=== PATIENT | male | born 1990 | race Caucasian/White ===

== ENCOUNTER 2017-10-07 22:30 | Emergency (ER) | payer BC ==
[2017-10-07] MEDS ORDERED: traMADol 50 MG Tab PO ONE (23:08)
[2017-10-07] MEDS ORDERED: Amoxicillin/Clavulanate K 875-125 MG Tab PO ONE (23:08)
--- NOTE | 2017-10-07 23:08 | EDM.PDOC ---
ED HPI GENERAL MEDICAL PROBLEM - General Chief Complaint: Eye Problems Stated Complaint: EYE PROBLEM Time Seen by Provider: 10/07/17 22:35 Source of Information: Reports: Patient - History of Present Illness INITIAL COMMENTS - FREE TEXT/NARRATIVE: 27 y.o.w.m came to the ed with his friend after he was grinding wood and suddenly felt pain in his right eye. Pt had severe sensitivity to light. Pt had severe right eye pain with movement. Pt denied any other acute medical issues. BP 152/78 puse 70 RR 20 Pulse ox 98% on RA. Onset: Today Onset Date: 10/07/17 Onset Time: 09:00 Duration: Hour(s):, Intermittent Location: Reports: Face Quality: Reports: Ache, Burning, Dull, Stabbing Severity: Moderate Improves with: Reports: Rest Worsens with: Reports: Movement Context: Reports: Other (sawmill dust in right eye) Associated Symptoms: Reports: Other Right eye Pain Score (Numeric/FACES): 2 - Related Data Allergies Allergy/AdvReac Type Severity Reaction Status Date / Time No Known Allergies Allergy Verified 10/07/17 22:59 Home Meds: Home Meds Acetaminophen [Tylenol Extra Strength] 1,000 mg PO Q6H PRN 10/07/17 [History] Amoxicillin/Clavulanate K [Augmentin 875 MG] 1 tab PO BID #20 tablet 10/07/17 [ Rx] ED ROS GENERAL - Review of Systems Review Of Systems: See Below Constitutional: Reports: No Symptoms HEENT: Reports: Eye Pain Respiratory: Reports: No Symptoms Cardiovascular: Reports: No Symptoms Endocrine: Reports: No Symptoms GI/Abdominal: Reports: No Symptoms : Reports: No Symptoms Musculoskeletal: Reports: No Symptoms Skin: Reports: Erythema (periocular) Neurological: Reports: No Symptoms Psychiatric: Reports: No Symptoms Hematologic/Lymphatic: Reports: No Symptoms Immunologic: Reports: No Symptoms ED EXAM GENERAL W FULL EYE - Physical Exam Exam: See Below Exam Limited By: No Limitations General Appearance: Alert, WD/WN, Mild Distress Eye Exam: Right Eye: Conjunctival Injection, Corneal Abrasion (saw dust right eye), Foreign Body, Normal Fundi, Bilateral Eye: EOMI Eyelids: Right: Lid Everted for Exam Conjunctiva & Sclera: Right: Foreign Body Extraocular Movements: Bilateral: Intact Pupils: Normal Accommodation Pupillary Reaction: Bilateral: Brisk Anterior Chamber: Bilateral: Normal Appearance Ears: Normal External Exam Nose: Normal Inspection Throat/Mouth: Normal Inspection Head: Atraumatic Neck: Normal Inspection Respiratory/Chest: No Respiratory Distress Cardiovascular: Normal Peripheral Pulses GI/Abdominal: Normal Bowel Sounds (Male) Exam: Deferred (Female) Exam: Deferred Rectal (Males) Exam: Deferred Rectal (Female) Exam: Deferred Back Exam: Normal Inspection Extremities: Normal Inspection Neurological: Alert, Oriented, CN II-XII Intact Psychiatric: Normal Affect, Normal Mood Skin Exam: Warm, Dry, Intact Lymphatic: No Adenopathy ED EYE w/ Add Procedure - Eye Procedure Alcaine Drops Administered: Yes Eye Irrigated w/ Saline (ccs): 10 Antibiotic Oinment/Drps Admin: Right Eye Course - Vital Signs Text/Narrative:: 27 y.o.w.m came to the ed with his friend after he was grinding wood and suddenly felt pain in his right eye. Pt had severe sensitivity to light. Pt had severe right eye pain with movement. Pt denied any other acute medical issues. BP 152/78 puse 70 RR 20 Pulse ox 98% on RA. TN: R eye pain with photophobia Procedure: right eye was anesthetized with Rell, Fouroscein was applied, sand like material was seen at the right cornea lateral aspect with corneal abrasions. Right eye was irrigated with 125 cc of NS using a Ryan lense. After the eye was irrigated, Gentamicin ointment was applied. No complication. Visual acuity: Please see nursing note Impression: FB right eye, Periorbital cellulitis, corneal abrasion Tx: Eye irrigation, Abx (gentamicin ointment to take home) ultram Reexam: Improved after irrigation with NS and Gentamicin eye ointment application Plan: D/C with instructions Addendum: I have called the pt on 10/08/2017 at 3 pm. He was doing fine and did not see an reconciliation specialist. Last Recorded V/S: Last Vital Signs Temp 36.4 C 10/07/17 23:20 Pulse 75 10/07/17 23:20 Resp 18 10/07/17 23:20 BP 143/74 H 10/07/17 23:20 Pulse Ox 99 10/07/17 23:20 - Orders/Labs/Meds Meds: Medications Discontinued Medications Generic Name Dose Route Start Last Admin Trade Name Freq PRN Reason Stop Dose Admin Amoxicillin/Clavulanate Potassium 1 tab 10/07/17 23:08 10/07/17 23:15 Augmentin 875 Mg/125 Mg PO 10/07/17 23:09 1 tab ONETIME ONE Administration Departure - Departure Time of Disposition: 23:04 Disposition: Home, Self-Care 01 Condition: Good Clinical Impression: Periorbital cellulitis of right eye Foreign body of right eye Qualifiers: Encounter type: initial encounter Qualified Code(s): T15.91XA - Foreign body on external eye, part unspecified, right eye, initial encounter - Discharge Information Prescriptions: Amoxicillin/Clavulanate K [Augmentin 875 MG] 1 tab PO BID #20 tablet Referrals: PCP,None [Primary Care Provider] - Forms: ED Department Discharge Additional Instructions: Please apply ABx ointment to R eye twice daily, please f/u with your eye doct [phone] [facility], Please take ultram/motin for pain. Please come back if your symptoms get worse acutely.
== END 2017-10-07 23:21 | disposition home or self-care (01) ==
LOC: FB.ED 22:30
DX: T15.01XA Foreign body in cornea, right eye, initial encounter (principal); L03.213 Periorbital cellulitis; X58.XXXA Exposure to other specified factors, initial encounter; Y93.89 Activity, other specified
CPT/HCPCS: 99283; A9270